=== PATIENT | female | born 1945 | race Caucasian/White ===

== ENCOUNTER → 2017-08-30 | Outpatient (CLI) | payer BC ==
--- NOTE | 2017-09-02 08:13 | MAMMOGRAPHY REPORT ---
BILATERAL DIGITAL SCREENING MAMMOGRAM TOMOSYNTHESIS WITH CAD: 08/30/2017 CLINICAL HISTORY: Routine screening. Patient has no complaints. TECHNIQUE: Breast tomosynthesis in addition to standard 2D mammography was performed. Current study was also evaluated with a Computer Aided Detection (CAD) system. COMPARISON: Comparison is made to exams dated: 07/01/2016 mammogram, 02/04/2014 mammogram, 02/01/2013 m ammogram, 02/01/2012 mammogram, 01/27/2011 mammogram, and 01/19/2010 mammogram - [facility] enter. BREAST COMPOSITION: There are scattered areas of fibroglandular density in both breasts. FINDINGS: No suspicious masses, calcifications, or areas of architectural distortion are noted in ei ther breast. There has been no significant interval change compared to prior exams. Scattered bilater al benign-appearing calcifications are not significantly changed. IMPRESSION: ACR BI-RADS CATEGORY 2: BENIGN There is no mammographic evidence of malignancy. A 1 year screening mammogram is recommended. The pa tient will receive written notification of the results. Approximately 10% of breast cancers are not detected with mammography. A negative mammographic report should not delay biopsy if a clinically suggestive mass is present. Tiny Smith M.D. /:08/30/2017 15:23:15 Research Attorney: Ana Castaneda M, [facility] letter sent: Normal 1/2 BI-RADS Code: ACR BI-RADS Category 2: Benign
== END | disposition home or self-care (01) ==
LOC: C.MAMM 13:35
PROVIDERS: ATTEND Family Medicine
DX: Z12.31 Encounter for screening mammogram for malignant neoplasm of breast (principal)

== ENCOUNTER → 2018-01-04 | Outpatient (CLI) | payer BC ==
--- NOTE | 2018-01-04 13:39 | DIAGNOSTIC IMAGING REPORT ---
ABDOMEN FOR HERNIA CLINICAL HISTORY: 72 years-old Female presenting with ABD LUMP,POSSIBLE HERNIA. TECHNIQUE: Real-time grayscale Doppler ultrasound imaging of the left abdomen/hypochondrium was performed for a focused evaluation at the site of clinical concern. Color Doppler ultrasound imaging was also performed. COMPARISON: None. FINDINGS: At the site of a palpable abnormality, is suspected peritoneal defect is evident with herniated intra-abdominal fat. No associated fluid. No hyperemia. This is incompletely reducible with the ultrasound probe. IMPRESSION: 1. Nonreducible fat-containing ventral hernia at the site of clinical concern. Electronically signed by: Jules Scott M.D. 01/04/2018 1:37 PM Dictated Date/Time: 01/04/2018 1:35 PM
== END | disposition home or self-care (01) ==
LOC: C.ULTR 13:02
PROVIDERS: ATTEND Nurse Practitioner Family
DX: R19.00 Intra-abdominal and pelvic swelling, mass and lump, unspecified site (principal)

== ENCOUNTER 2018-02-20 08:54 | Emergency (ER) | payer BC ==
[2018-02-20 09:02] VITALS: TEMP 37
[2018-02-20] MEDS ORDERED: ATEN-173 PO (09:15)
[2018-02-20] MEDS ORDERED: PRLSR20 PO (09:15)
[2018-02-20] MEDS ORDERED: FAMOTIDINE 20MG/5ML IV PUSH IV STA (09:37)
[2018-02-20] MEDS ORDERED: METHYLPREDNISOLONE 125 MG VIAL IV STA (09:37)
[2018-02-20] MEDS ORDERED: DiphenhydrAMINE HCL 50 MG/ML VIAL IV STA (09:37)
[2018-02-20] MEDS ORDERED: PRED20TA PO (10:57)
[2018-02-20] MEDS ORDERED: EPP3/2 IM (10:57)
--- NOTE | 2018-02-20 11:01 | EMERGENCY ROOM VISIT NOTE ---
History Report prepared by Sabihaibalondra: Issa Yuen Under the Supervision of: Dr. Isidra Rice M.D. First contact with patient: 09:33 Chief Complaint: ALLERGIC REACTION Stated Complaint: ALLERGIC REACTION History of Present Illness The patient is a 72 year old female who presents to the Emergency Room with complaints of a constant generalized allergic reaction beginning last night. She states that her symptoms began after returning home from work at [employer]. She states that her symptoms began with noticing a "lump" on her right nostril. She states that the area felt "hard", and this eventually progressed into her upper lip. The patient states that she then developed generalized itching, worse on her head. She later noticed swelling to her feet and breasts. She denies shortness of breath. The patient denies eating anything abnormal. She denies any exposures to new chemicals. She is unsure what could have caused her symptoms. Source of History: patient Onset: Last night Position: other (generalized) Quality: other (allergic reaction) Timing: constant Associated Symptoms: No SOB Review of Systems See HPI for pertinent positives & negatives. A total of 10 systems reviewed and were otherwise negative. Past Medical & Surgical Medical Problems: (1) GERD (gastroesophageal reflux disease) (2) Hernia (3) HTN (hypertension) Surgical Problems: (1) H/O: hysterectomy Family History No pertinent family history stated. Social History Smoking Status: Never Smoker Marital Status: Housing Status: lives alone Occupation Status: employed Current/Historical Medications Scheduled Atenolol (Tenormin), 25 MG PO DAILY Omeprazole (Prilosec), 20 MG PO DAILY Prednisone (Prednisone), 20 MG PO DAILY Scheduled PRN Epinephrine (Epipen 2-Tom), 1 AMP IM as needed PRN for Allergic Reaction Allergies Coded Allergies: No Known Allergies (Unverified , 02/20/18) Physical Exam Vital Signs Date Time Temp Pulse Resp B/P (MAP) Pulse Ox O2 Delivery O2 Flow Rate FiO2 02/20/18 11:02 88 17 143/87 97 02/20/18 10:53 88 17 143/87 97 Room Air 02/20/18 09:15 Room Air 02/20/18 09:02 37.0 94 20 108/67 96 Room Air Physical Exam Vital signs reviewed. General: Well-appearing female, in no significant distress. HEENT: No scleral icterus, PERRLA, neck supple. Atraumatic. Mild uvular edema. Cardiovascular: Regular rate and rhythm, no extra sounds. Pulmonary: Clear to auscultation bilaterally, normal work of breathing. Abdomen: Soft, nontender, nondistended, positive bowel sounds. Musculoskeletal: Atraumatic, no peripheral edema. Neurologic: Patient awake alert and oriented x 3 Skin: Warm, dry, no rash. Scattered urticaria to the upper extremities, anterior chest and abdomen. Medical Decision & Procedures Medications Administered Medications (Trade) Dose Ordered Sig/Carlos Route Start Time Stop Time Status Last Admin Dose Admin Diphenhydramine HCl (Benadryl Inj) 25 mg NOW STAT IV 02/20/18 09:37 02/20/18 09:40 DC 02/20/18 10:37 25 MG Methylprednisolone Sodium Succinate (Solu-Medrol IV) 125 mg NOW STAT IV 02/20/18 09:37 02/20/18 09:40 DC 02/20/18 10:37 125 MG Famotidine (Pepcid 20mg Iv Push) 20 mg ONE STAT IV 02/20/18 09:37 02/20/18 09:40 DC 02/20/18 10:37 20 MG ED Course 0936: Past medical records reviewed. The patient was evaluated in room B3B. A complete history and physical examination was performed. 0937: Ordered Pepcid 20 mg IV, Solu-Medrol 125 mg IV, Benadryl Inj 25 mg IV. 1055: Upon reevaluation, the patient appeared to have improvement of her symptoms. I discussed findings with her. She verbalized agreement of the treatment plan. The patient was discharged home. Medical Decision Differential diagnosis: Etiologies such as allergic reaction, anaphylaxis, urticaria, Elena-Jay syndrome, toxic epidermal necrolysis, erythema multiforme, cellulitis, as well as others were entertained. This patient was evaluated and appeared to be in no significant distress. IV access was obtained. The patient was placed on the compliance monitor. She was medicated with IV Benadryl, IV Pepcid and IV Solu-Medrol. Patient was observed in the emergency department for the better part of 2 hours total without any exacerbation of symptoms. She was discharged with a prednisone taper, asked to use Benadryl as needed and given a prescription for an EpiPen. She was advised to return to the emergency department if she uses the EpiPen. Patient will follow up with her PCP for reevaluation this week and return to the ER for worsening of symptoms or any medical concerns. Medication Reconcilliation Current Medication List: was personally reviewed by me Blood Pressure Screening Patient's blood pressure: Normal blood pressure Blood pressure disposition: Did not require urgent referral Impression Primary Impression: Allergic reaction Scribe Attestation The scribe's documentation has been prepared under my direction and personally reviewed by me in its entirety. I confirm that the note above accurately reflects all work, treatment, procedures, and medical decision making performed by me. Departure Information Dispostion Home / Self-Care Prescriptions Epinephrine (EPIPEN 2-TOM) 0.3 Mg Inj 1 AMP IM as needed Y for Allergic Reaction, #1 BOX Prov: Isidra Rice M.D. 02/20/18 Prednisone (Prednisone) 20 Mg Tab 20 MG PO DAILY, #4 TAB Prov: Isidra Rice M.D. 02/20/18 Referrals Chris Bazzi M.D. (PCP) Forms HOME CARE DOCUMENTATION FORM, IMPORTANT VISIT INFORMATION Patient Instructions ED Allergic Reaction General Other, My [facility] Additional Instructions Diagnosis: Allergic reaction Prednisone 20 mg daily for the next 4 days. Benadryl 25-50 mg every 6 hours as needed for rash, itching or swelling. When the Benadryl is done, consider a daily Greta which is [id number]. EpiPen as directed by the pharmacist for severe allergic symptoms. Return to the emergency department if you take this medication. Follow-up with your primary care physician this week for reevaluation. Return to the ER for worsening of symptoms or any medical concerns.
[2018-02-20 11:02] VITALS: BP 143/87; PULSE 88; O2SAT 97
== END 2018-02-20 11:03 | disposition home or self-care (01) ==
LOC: C.EDB 08:56
DX: T78.40XA Allergy, unspecified, initial encounter (principal); X58.XXXA Exposure to other specified factors, initial encounter; K21.9 Gastro-esophageal reflux disease without esophagitis; I10 Essential (primary) hypertension; Z90.710 Acquired absence of both cervix and uterus; Z79.899 Other long term (current) drug therapy

== ENCOUNTER 2022-03-21 10:59 | Inpatient (IN) ==
[2022-03-21] MEDS ORDERED: PANTOprazole 40 MG in SYRINGE 0 ML IV ONE (11:42)
[2022-03-21] MEDS: SODIUM CHLORIDE 0.9% 1000ML 1,000 ML IV SCH ×3 (11:55→21:54)
--- NOTE | 2022-03-21 12:00 | Emergency Department Note ---
History of Present Illness General Chief complaint: Dizziness Stated complaint: DIZZY,SWEATING,STOMACH PAIN,DARK STOOLS,TIRED Time Seen by Provider: 03/21/22 11:28 Source: patient Mode of arrival: ambulatory Limitations: no limitations History of Present Illness Provider complaint: dizziness, fatigue, black stools Onset (ago): week(s) 1 Maximum Pain Intensity: 3 Exacerbated By: + movement Associated symptoms: + malaise and + shortness of breath; no chest pain or no fever/chills Treatments prior to arrival: none This is a 77-year-old female who presents emergency department with concern for intermittent episodes of dizziness, diaphoresis, and fatigue, as well as black stools over the course of the week. Patient states last weekend she did have a constitution party at her house and drank more than usual and has been eating leftover food all week. She states she did notice some increased fatigue with exertion as well as some slight increased "windedness". Patient states yesterday this seemed worse while she was at work and she was so tired after work she came home and went straight to bed and slept till 9:00 this morning. Patient states she did feel slightly better this morning although was still fatigued and would break out in a sweat. She denies any overt chest pain or pressure although states she has felt like her heart was racing and pounding. She states she does feel slightly more short of breath than usual with exertion, no sense of shortness of breath at rest. Patient states she does have a prior history of GERD and peptic ulcer disease. Patient states she does not take a daily stomach medication. Patient states she does take Aleve every night for her joint pains. Patient states occasionally she will use aspirin or Tylenol in addition. She denies any blood thinners. She states she has had some intermittent crampy abdominal pain. She has not seen any gross blood with bowel movements but states it did look very black. Pt seen during a time of high acuity and national emergency pandemic while wearing PPE. Home Medications Medication Instructions Recorded Confirmed Type pantoprazole 40 mg tablet,delayed 40 mg PO BID #60 tab 03/23/22 Rx release Allergies Allergy/AdvReac Type Severity Reaction Status Date / Time No Known Allergies Allergy Verified 03/22/22 15:09 Past Med/Surg History Medical History GERD (gastroesophageal reflux disease) HTN (hypertension) UGIB (upper gastrointestinal bleed) Surgical History H/O: hysterectomy Social History (Updated 03/21/22 @ 15:48 by Dominga Juarez PA-C) Smoking Status: Never smoker Hx Alcohol Use: Yes Alcohol type: beer Alcohol Intake Frequency: 4 or More x per/Week Hx Substance Use: No Preferred Language: Slovenian Communication Ability: Effective Insulation Hoseman Required: No Beliefs That Will Affect Care: None Current Living Situation: Alone Current Living Situation Comment: House Feels Safe at Home: Yes Assistive Devices: None Review of Systems A total of 10 systems reviewed and were otherwise negative All systems reviewed & are unremarkable except as noted in HPI & below Physical Exam Vital Signs Vital Signs - 24 hr 03/21/22 11:03 03/21/22 12:39 Temperature 36.1 C L Temperature Source Temporal Artery Scan Pulse Rate 134 H Pulse Rate [Apical] 92 H Respiratory Rate 20 16 Blood Pressure 150/126 H Blood Pressure [Left Arm] 111/69 Blood Pressure Mean 134 Blood Pressure Mean [Left Arm] 83 Pulse Oximetry 98 100 Oxygen Delivery Method Room Air Room Air Sepsis Recent Fever Within 48 Hours No Sepsis New/Unexplained Change in Mental Status No Sepsis Action Taken by Nursing No Action Required GENERAL: alert, well appearing, well nourished, no distress, non-toxic EYE EXAM: normal conjunctiva, PERRL and EOM's grossly intact OROPHARYNX: no exudate, no erythema, lips, buccal mucosa, and tongue normal and mucous membranes are moist NECK: supple, no nuchal rigidity, no adenopathy, non-tender LUNGS: Clear to auscultation. Normal chest wall mechanics, no w/r/r HEART: no murmurs, S1 normal and S2 normal, tachycardic on telemetry ABDOMEN: abdomen soft, non-tender, normo-active bowel sounds, no masses, no rebound or guarding. RECTAL: No obvious anal fissure or external hemorrhoids. Small amount of stool noted in the rectal vault on TEO, melanotic in appearance, heme positive on bedside guaiac testing. BACK: Back is symmetrical on inspection and there is no deformity, no midline tenderness, no CVA tenderness. SKIN: no rashes and no bruising UPPER EXTREMITIES: upper extremities are grossly normal. FROM, nml pulses b/l. LOWER EXTREMITIES: No pitting edema. FROM, nml pulses b/l. NEURO EXAM: Normal sensorium, cranial nerves II-XII grossly intact, normal speech, no gross weakness of arms, no gross weakness of legs. Gross sensation intact. Course Course 1250: Pt updated on results. Denies ever being told she had anemia. 1425: Pt updated. Still tachycardic at bedside. Administered Medications Discontinued Medications Acetaminophen (Acetaminophen 325 Mg Tab) 650 mg PO NOW ONE Stop: 03/21/22 21:32 Last Admin: 03/21/22 21:52 Dose: 650 mg Documented by: [id number] Acetaminophen (Acetaminophen 1000 Mg/100 Ml Iv) 1,000 mg IV Q8H PRN PRN Reason: Pain or Fever Stop: 03/24/22 21:30 Last Admin: 03/22/22 20:36 Dose: 1,000 mg Documented by: [id number] Pantoprazole Sodium 40 mg/ (Syringe) 10 mls @ 5 mls/min IV NOW ONE Stop: 03/21/22 11:43 Last Admin: 03/21/22 13:15 Dose: 5 mls/min Documented by: [id number] Sodium Chloride (Nss 1000ml) 1,000 mls @ 200 mls/hr IV .Q5H [facility] Stop: 04/20/22 11:44 Last Admin: 03/22/22 11:38 Dose: Not Given Documented by: [id number] Admin: 03/22/22 04:06 Dose: Not Given Documented by: [id number] Admin: 03/21/22 21:54 Dose: Not Given Documented by: [id number] Admin: 03/21/22 19:28 Dose: Not Given Documented by: [id number] Infusion: 03/21/22 17:21 Dose: 0 mls/hr Documented by: [id number] Admin: 03/21/22 11:55 Dose: 200 mls/hr Documented by: [id number] Pantoprazole Sodium 40 mg/ (Dextrose) 100 mls @ 20 mls/hr IV Q5H [facility] Stop: 04/20/22 14:29 Last Infusion: 03/21/22 19:26 Dose: 0 mg/hr, 0 mls/hr Documented by: [id number] Admin: 03/21/22 14:37 Dose: 8 mg/hr, 20 mls/hr Documented by: [id number] Lactated Ringer's (Lr) 1,000 mls @ 80 mls/hr IV .[id number] [facility] Stop: 04/20/22 17:47 Last Infusion: 03/22/22 13:21 Dose: 0 mls/hr Documented by: [id number] Infusion: 03/22/22 13:21 Dose: 0 mls/hr Documented by: [id number] Admin: 03/22/22 07:36 Dose: 80 mls/hr Documented by: [id number] Infusion: 03/22/22 07:33 Dose: 0 mls/hr Documented by: [id number] Admin: 03/21/22 18:27 Dose: 80 mls/hr Documented by: [id number] Pantoprazole Sodium 40 mg/ (Syringe) 10 mls @ 5 mls/min IV BID [facility] Stop: 04/20/22 20:59 Last Admin: 03/23/22 08:06 Dose: 5 mls/min Documented by: [id number] Admin: 03/22/22 20:24 Dose: 5 mls/min Documented by: [id number] Admin: 03/22/22 10:02 Dose: 5 mls/min Documented by: [id number] Admin: 03/21/22 21:50 Dose: 5 mls/min Documented by: [id number] Ioversol (Optiray 320 100ml) 94 ml IV ONCE ONE Stop: 03/21/22 13:05 Last Admin: 03/21/22 13:05 Dose: 94 ml Documented by: [id number] Lidocaine HCl (Lidocaine 2% 2 Ml Vial/Amp(20mg/Ml)) Confirm Administered Dose 2 ml INFIL .STK-MED ONE Stop: 03/22/22 16:04 Last Admin: 03/22/22 18:33 Dose: Not Given Documented by: [id number] Melatonin (Melatonin 3 Mg Tab) 3 mg PO HS PRN PRN Reason: Sleep Stop: 04/20/22 22:01 Last Admin: 03/21/22 22:16 Dose: 3 mg Documented by: [id number] Melatonin (Melatonin 3 Mg Tab) 6 mg PO HS PRN PRN Reason: Sleep Stop: 04/20/22 22:01 Last Admin: 03/22/22 20:23 Dose: 6 mg Documented by: [id number] Melatonin (Melatonin 3 Mg Tab) 3 mg PO NOW ONE Stop: 03/22/22 05:05 Last Admin: 03/22/22 07:34 Dose: Not Given Documented by: [id number] Propofol (Propofol Iv Emulsion 10 Mg/Ml 20 Ml Vial) Confirm Administered Dose 200 mg IV .STK-MED ONE Stop: 03/22/22 16:04 Last Admin: 03/22/22 18:34 Dose: Not Given Documented by: [id number] Propofol (Propofol Iv Emulsion 10 Mg/Ml 20 Ml Vial) Confirm Administered Dose 200 mg IV .STK-MED ONE Stop: 03/22/22 16:27 Last Admin: 03/22/22 18:34 Dose: Not Given Documented by: [id number] Critical Care Time Critical Care Time: Yes Total Critical Care Time: 41 Critical care of 41 min performed to assess and manage high likelihood of life- threatening GI bleed, involving labs and imaging performed with assessment to evaluate GI bleed diagnosis with frequent reassessment. This time includes bedside time, treatment discussions with patient/family/consultants, documentation time and excludes procedure time. Medical Decision Making Differential Diagnosis Differential diagnosis includes etiologies such as diverticulosis, AVM, c oagulopathy, colitis, inflammatory bowel disease, malignancy, Ángela-Lowe tear, esophagitis, peptic ulcer disease, variceal bleed, gastritis, epistaxis, fissure, hemorrhoids, as well as others were entertained. Medical Records Attestation: I reviewed the patient's medical records. Home Medications Current Medication List: was personally reviewed by me Laboratory Data Attestation: I reviewed the patient's lab results. Result diagrams: 03/23/22 05:40 03/23/22 05:40 Lab Results 03/21/22 03/21/22 03/21/22 Range/Units 11:53 11:53 11:53 WBC 8.61 (4.8-10.8) K/uL RBC 3.15 L (4.2-5.4) M/uL Hgb 9.1 L (12.0-16.0) g/dL Hct 27.4 L (37-47) % MCV 87.0 (80-100) fL MCH 28.9 (25-34) pg MCHC 33.2 (32-36) g/dL RDW Std Deviation 44.1 (36.4-46.3) fL RDW Coeff of Clara 13.8 (11.5-14.5) % Plt Count 257 (130-400) K/uL MPV 10.3 (7.4-10.4) fL Immature Gran % (Auto) 0.2 % Neut % (Auto) 75.3 % Lymph % (Auto) 17.8 % Morris % (Auto) 6.2 % Eos % (Auto) 0.2 % Baso % (Auto) 0.3 % Neut # (Auto) 6.48 (1.4-6.5) K/uL Lymph # (Auto) 1.53 (1.2-3.4) K/uL Morris # (Auto) 0.53 (0.11-0.59) K/uL Eos # (Auto) 0.02 (0-0.5) K/uL Baso # (Auto) 0.03 (0-0.2) K/uL Immature Gran # (Auto) 0.02 (0.00-0.02) K/uL PT 10.3 (9.0-12.0) Seconds INR 1.0 (0.9-1.1) Sodium (136-145) mmol/L Potassium (3.5-5.1) mmol/L Chloride (98-107) mmol/L Carbon Dioxide (21-32) mmol/L Anion Gap (3-11) BUN (6-23) mg/dl Creatinine (0.6-1.2) mg/dl Est Cr Clr Drug Dosing ml/min Est GFR ( Amer) ml/min Est GFR (Non-Af Amer) ml/min BUN/Creatinine Ratio (10-20) Glucose (70-99(Fasting)) mg/dl Calcium (8.5-10.1) mg/dl Magnesium (1.7-2.4) mg/dl Total Bilirubin (0.2-1.0) mg/dl AST (13-39) U/L ALT (7-52) U/L Alkaline Phosphatase (34-104) U/L Troponin I High Sens (0-14) pg/ml Total Protein (6.0-8.3) gm/dl Albumin (3.4-5.0) gm/dl Globulin (2.5-4.0) gm/dl Albumin/Globulin Ratio (0.9-2) Lipase (11-82) U/L Urine Color Urine Appearance (Clear) Urine pH (4.5-7.5) Ur Specific [place] (1.000-1.030) Urine Protein (Negative) Urine Glucose (UA) (Negative) Urine Ketones (Negative) Urine Blood (Negative) Urine Nitrite (Negative) Urine Bilirubin (Negative) Urine Urobilinogen (Negative) Ur Leukocyte Esterase (Negative) Urine WBC (Auto) (0-5) /hpf Urine RBC (Auto) (0-4) /hpf U Hyaline Cast (Auto) (0-5) /lpf U Epithel Cells (Auto) (0-5) /lpf Urine Bacteria (Auto) (Negative) Blood Type O Positive Antibody Screen NEGATIVE Crossmatch See Detail 03/21/22 03/21/22 Range/Units 11:53 14:42 WBC (4.8-10.8) K/uL RBC (4.2-5.4) M/uL Hgb (12.0-16.0) g/dL Hct (37-47) % MCV (80-100) fL MCH (25-34) pg MCHC (32-36) g/dL RDW Std Deviation (36.4-46.3) fL RDW Coeff of Clara (11.5-14.5) % Plt Count (130-400) K/uL MPV (7.4-10.4) fL Immature Gran % (Auto) % Neut % (Auto) % Lymph % (Auto) % Morris % (Auto) % Eos % (Auto) % Baso % (Auto) % Neut # (Auto) (1.4-6.5) K/uL Lymph # (Auto) (1.2-3.4) K/uL Morris # (Auto) (0.11-0.59) K/uL Eos # (Auto) (0-0.5) K/uL Baso # (Auto) (0-0.2) K/uL Immature Gran # (Auto) (0.00-0.02) K/uL PT (9.0-12.0) Seconds INR (0.9-1.1) Sodium 138 (136-145) mmol/L Potassium 3.7 (3.5-5.1) mmol/L Chloride 108 H (98-107) mmol/L Carbon Dioxide 25 (21-32) mmol/L Anion Gap 5 (3-11) BUN 40 H (6-23) mg/dl Creatinine 0.66 (0.6-1.2) mg/dl Est Cr Clr Drug Dosing 64.0 ml/min Est GFR ( Amer) 100.2 ml/min Est GFR (Non-Af Amer) 86.4 ml/min BUN/Creatinine Ratio 60.6 H (10-20) Glucose 116 H (70-99(Fasting)) mg/dl Calcium 8.9 (8.5-10.1) mg/dl Magnesium 2.1 (1.7-2.4) mg/dl Total Bilirubin 0.5 (0.2-1.0) mg/dl AST 13 (13-39) U/L ALT 8 (7-52) U/L Alkaline Phosphatase 50 (34-104) U/L Troponin I High Sens 3.8 (0-14) pg/ml Total Protein 6.2 (6.0-8.3) gm/dl Albumin 4.1 (3.4-5.0) gm/dl Globulin 2.1 L (2.5-4.0) gm/dl Albumin/Globulin Ratio 2.0 (0.9-2) Lipase 25 (11-82) U/L Urine Color Yellow Urine Appearance Clear (Clear) Urine pH 5.5 (4.5-7.5) Ur Specific [place] 1.037 H (1.000-1.030) Urine Protein Negative (Negative) Urine Glucose (UA) Negative (Negative) Urine Ketones Negative (Negative) Urine Blood Negative (Negative) Urine Nitrite Negative (Negative) Urine Bilirubin Negative (Negative) Urine Urobilinogen Negative (Negative) Ur Leukocyte Esterase 2+ H (Negative) Urine WBC (Auto) 5-10 H (0-5) /hpf Urine RBC (Auto) 0-4 (0-4) /hpf U Hyaline Cast (Auto) 1-5 (0-5) /lpf U Epithel Cells (Auto) >30 H (0-5) /lpf Urine Bacteria (Auto) Negative (Negative) Blood Type Antibody Screen Crossmatch Imaging Data Radiologist's Impression: Abdomen/Pelvis CT 03/21/22 11:42 CT abd pelvis IV con only CLINICAL HISTORY: abd pain, GI bleed COMPARISON STUDY: No previous studies for comparison. CT DOSE: 306.19 mGy.cm TECHNIQUE: Standard CT of the Abdomen and Pelvis was performed with IV contrast. A dose lowering technique was utilized adhering to the principles of ALARA. Contrast Volume: Optiray 320, 94 ml. The patient did not receive oral contrast. FINDINGS: Lung base: The lung bases are clear. Abdominal cavity: There is no evidence for abdominal mass, adenopathy or ascites. Liver: There is homogeneous attenuation of the liver parenchyma. There is no evidence for enhancing mass lesion. Spleen: There is homogeneous attenuation of the splenic parenchyma. There is no enhancing mass lesion. Pancreas: There is homogeneous attenuation of the pancreatic parenchyma. There is no evidence for mass lesion or peripancreatic fluid collection. Gall Bladder: The patient is status post cholecystectomy with physiologic dilatation of common bile duct. Adrenal glands: The adrenal glands are normal in size and attenuation. There is no evidence for enhancing mass lesion. Kidneys: There is homogeneous attenuation of the renal parenchyma bilaterally. There is no evidence for renal calculus or hydronephrosis. There is no evidence for enhancing mass. There is a sharply defined simple right renal cyst. Bowel: There is no CT evidence for active GI bleeding. The bowel loops are n ormally placed within the abdomen and pelvis without evidence for dilatation or obstruction. There is no evidence for mass lesion. There are no inflammatory changes present. There is no evidence for free air. The appendix is not visualized. Bladder: The bladder is within normal limits with no evidence for focal mass, calculus or diverticulum. : There is no evidence for pelvic mass or adenopathy. There is no evidence for pelvic ascites. Vasculature: There is no evidence for aneurysmal dilatation of the abdominal aor ta. Osseous structures: There is no acute osseous pathology. Degenerative changes are seen within the spine. IMPRESSION: 1. No acute intra-abdominal or pelvic abnormality. 2. No CT evidence for GI bleed. 3. Additional nonacute findings are delineated above. ACT 112: Negative or not required by law. Electronically signed by: Jorge Dykes M.D. 03/21/2022 1:38 PM Chest X-Ray 03/21/22 11:42 XR chest 1V portable CLINICAL HISTORY: sob. COMPARISON STUDY: No previous studies for comparison. TECHNIQUE: 1 view of the chest FINDINGS: Single frontal view of the chest demonstrates the cardiomediastinal silhouette to be within normal limits. The lungs are clear of alveolar opacities. There is no evidence for pleural effusion. There is no evidence for vascular congestion. There is no acute osseous pathology. IMPRESSION: 1. No acute cardiopulmonary disease. ACT 112: Negative or not required by law. Electronically signed by: Jorge Dykes M.D. 03/21/2022 12:27 PM MDM Narrative An order was placed for continuous cardiac monitoring. The monitor shows a rate of _106_ with __normal sinus__ rhythm. This is a 77 yo female who presents with complaints of worsening fatigue, dizziness, WHITE and melenotic stools over the course of the last week. VS stable, however pt was tachycardic. Denied symptoms at rest. Exam at bedside did confirm melena and heme positive stools. Hbg 9, no prior for comparison. Patient denies prior hx of anemia. Patient does use ASA and NSAIDS daily for arthritis pain and admits to nearly [place] alcohol use. CT reassuring. Discussed need for treatment and EGD. Case discussed with hospitalist. Impression & Plan Dizziness, GERD (gastroesophageal reflux disease), UGIB (upper gastrointestinal bleed), Alcohol use, Fatigue Discharge Plan Visit Data Chief Complaint: Dizziness Stated Complaint: DIZZY,SWEATING,STOMACH PAIN,DARK STOOLS,TIRED ED Provider: Tawny Boggs Discharge Problem: Dizziness, GERD (gastroesophageal reflux disease), UGIB (upper gastrointestinal bleed), Alcohol use, Fatigue Patient Disposition: Admitted As Inpatient Discharge Instructions Interventions: ED Discharge Assessment Last Done: 03/21/22 17:50 Discharge Problem: GERD (gastroesophageal reflux disease) Qualifiers: Esophagitis presence: esophagitis presence not specified Qualified Code(s): K21.9 - Gastro-esophageal reflux disease without esophagitis Fatigue Qualifiers: Fatigue type: unspecified Qualified Code(s): R53.83 - Other fatigue
[2022-03-21 12:07] LABS: Basophils # (auto) 0.03 K/uL (0-0.2); Basophils % (auto) 0.3 %; Eosinophils # (auto) 0.02 K/uL (0-0.5); Eosinophils % (auto) 0.2 %; Hematocrit (blood only) 27.4 % (37-47); Hemoglobin 9.1 g/dL (12.0-16.0); Immature Granulocytes # (auto) 0.02 K/uL (0.00-0.02); Immature Granulocytes % (auto) 0.2 %; Lymphocytes # (auto) 1.53 K/uL (1.2-3.4); Lymphocytes % (auto) 17.8 %; Mean Corpuscular Hemoglobin 28.9 pg (25-34); Mean Corpuscular Hgb Conc 33.2 g/dL (32-36); Mean Platelet Volume 10.3 fL (7.4-10.4); Monocytes # (auto) 0.53 K/uL (0.11-0.59); Monocytes % (auto) 6.2 %; Neutrophils # (auto) 6.48 K/uL (1.4-6.5); Neutrophils % (auto) 75.3 %; Platelet Count 257 K/uL (130-400); RDW Coefficient of Variation 13.8 % (11.5-14.5); RDW Standard Deviation 44.1 fL (36.4-46.3); Red Blood Count 3.15 M/uL (4.2-5.4); White Blood Count 8.61 K/uL (4.8-10.8)
[2022-03-21 12:21] LABS: Prothrombin Time 10.3 Seconds (9.0-12.0)
--- NOTE | 2022-03-21 12:28 | XRay Report ---
XR chest 1V portable CLINICAL HISTORY: sob. COMPARISON STUDY: No previous studies for comparison. TECHNIQUE: 1 view of the chest FINDINGS: Single frontal view of the chest demonstrates the cardiomediastinal silhouette to be within normal li mits. The lungs are clear of alveolar opacities. There is no evidence for pleural effusion. There is no evidence for vascular congestion. There is no acute osseous pathology. IMPRESSION: 1. No acute cardiopulmonary disease. ACT 112: Negative or not required by law. Electronically signed by: Jorge Dykes M.D. 03/21/2022 12:27 PM
[2022-03-21 12:29] LABS: Albumin Level 4.1 gm/dl (3.4-5.0); BUN Creatinine Ratio 60.6 (10-20); Bilirubin,Total 0.5 mg/dl (0.2-1.0); Calcium 8.9 mg/dl (8.5-10.1); Est GFR (African American) 100.2 ml/min; Est GFR (Non-African American) 86.4 ml/min; Globulin 2.1 gm/dl (2.5-4.0); Magnesium 2.1 mg/dl (1.7-2.4); Potassium 3.7 mmol/L (3.5-5.1); Total Protein 6.2 gm/dl (6.0-8.3)
[2022-03-21 12:31] LABS: Troponin I High Sensitivity 3.8 pg/ml (0-14)
[2022-03-21] MEDS ORDERED: OPTIRAY 320 100ml IV ONE (13:04)
--- NOTE | 2022-03-21 13:40 | CT Scan Report ---
CT abd pelvis IV con only CLINICAL HISTORY: abd pain, GI bleed COMPARISON STUDY: No previous studies for comparison. CT DOSE: 306.19 mGy.cm TECHNIQUE: Standard CT of the Abdomen and Pelvis was performed with IV contrast. A dose lowering elisabeth hnique was utilized adhering to the principles of ALARA. Contrast Volume: Optiray 320, 94 ml. The patient did not receive oral contrast. FINDINGS: Lung base: The lung bases are clear. Abdominal cavity: There is no evidence for abdominal mass, adenopathy or ascites. Liver: There is homogeneous attenuation of the liver parenchyma. There is no evidence for enhancing m ass lesion. Spleen: There is homogeneous attenuation of the splenic parenchyma. There is no enhancing mass lesion . Pancreas: There is homogeneous attenuation of the pancreatic parenchyma. There is no evidence for mas s lesion or peripancreatic fluid collection. Gall Bladder: The patient is status post cholecystectomy with physiologic dilatation of common bile d uct. Adrenal glands: The adrenal glands are normal in size and attenuation. There is no evidence for enhan cing mass lesion. Kidneys: There is homogeneous attenuation of the renal parenchyma bilaterally. There is no evidence f or renal calculus or hydronephrosis. There is no evidence for enhancing mass. There is a sharply defi tiara simple right renal cyst. Bowel: There is no CT evidence for active GI bleeding. The bowel loops are normally placed within the abdomen and pelvis without evidence for dilatation or obstruction. There is no evidence for mass les ion. There are no inflammatory changes present. There is no evidence for free air. The appendix is no t visualized. Bladder: The bladder is within normal limits with no evidence for focal mass, calculus or diverticulu m. : There is no evidence for pelvic mass or adenopathy. There is no evidence for pelvic ascites. Vasculature: There is no evidence for aneurysmal dilatation of the abdominal aorta. Osseous structures: There is no acute osseous pathology. Degenerative changes are seen within the spi ne. IMPRESSION: 1. No acute intra-abdominal or pelvic abnormality. 2. No CT evidence for GI bleed. 3. Additional nonacute findings are delineated above. ACT 112: Negative or not required by law. Electronically signed by: Jorge Dykes M.D. 03/21/2022 1:38 PM
[2022-03-21] MEDS ORDERED: PANTOprazole 40 MG in DEXTROSE 5% 100 ML IV SCH (14:30)
--- NOTE | 2022-03-21 14:44 | History & Physical Report ---
Date of Service March 21, 2022 Assessment & Plan (1) UGIB (upper gastrointestinal bleed): Plan: - Suspected, given elevated BUN, hemoglobin 9.1, dark tarry stools over the past week with multiple risk factors including frequent coffee ingestion, frequent NSAID ingestion. With a distant history of PUD 15-20 years ago. - Continue IV PPI twice daily. - Clear liquids for now, n.p.o. at midnight. - Consult GI, appreciate their recommendations. - Trend H/H every 8 hours. - Counseled on need to find alternative for pain relief, as frequent NSAID use is likely contributing to GI bleed. Also encouraged to reduce caffeine intake. (2) GERD (gastroesophageal reflux disease): Plan: - Has been intermittently taking omeprazole over the past several months. - We will likely need to be on this daily upon discharge. (3) Alcohol use: Plan: - Reports she drinks 3-6 beers/night every night. Has never withdrawn from alcohol. LFTs within normal limits. - Placed on AWSS as per precautions. - Patient was counseled on the need to cut back on alcohol in order to prevent future episodes of GI bleeds. Plan: - Admit to med/telemetry. - SCDs for DVT PPx. - Full code. History of Present Illness Chief Complaint: dark, tarry stools Primary Care Provider: Chris Bazzi MD Mariaelena Avitia is a 77 y/o female with PMH of arthritis, GERD, and distant history of PUD who presents today for evaluation of dark stools over the past week. She reports she has been noting that her stools have been black over the past week, almost as if they are tarry. She has also developed shortness of breath, dizziness, and palpitations with activity beginning yesterday. She does she drinks coffee daily and has been taking either "3 pills" of Advil or aspirin regularly for the 2-3 weeks for treatment of her arthritis. 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 She does note a distant history of peptic ulcer disease ~15-20 years ago, believes she has had this EGD before but does not recall results. She does not recall ever being told that she is anemic by her PCP, who she does see regularly. In ED, she is mildly hypertensive with HR 90, otherwise vital signs within normal limits and stable. Labs largely unremarkable, significant for hemoglobin 9.1 (no previous labs for reference), BUN 40. No leukocytosis, electrolytes within normal limits. HS Trop 3.8. CT A/P showed no CT evidence for GI bleed or any other acute abnormalities. CXR unremarkable. Patient received IV fluids as well as IV pantoprazole in ED. Hospitalist service was consulted for further evaluation and admission. Allergies Allergy/AdvReac Type Severity Reaction Status Date / Time No Known Allergies Allergy Unverified 02/20/18 09:15 Home Medications Medication Instructions Recorded Confirmed Type No Known Home Medications 03/21/22 03/21/22 History Past Med/Surg History Medical History (Updated 03/21/22 @ 15:48 by Dominga Juarez PA-C) GERD (gastroesophageal reflux disease) HTN (hypertension) UGIB (upper gastrointestinal bleed) Surgical History (Updated 03/21/22 @ 15:48 by Dominga Juarez PA-C) H/O: hysterectomy Social History (Updated 03/21/22 @ 15:48 by Dominga Juarez PA-C) Smoking Status: Never smoker Hx Alcohol Use: Yes (3-6 beers/night ) Alcohol type: beer Alcohol Intake F requency: 4 or More x per/Week Preferred Language: [place] Citizen Feels Safe at Home: Yes Review of Systems Review of Systems: Constitutional: lightheaded/dizzy since yesterday; No fever/chills, weakness, fatigue, myalgias, anorexia, night sweats Eyes: No diplopia, no worsening or blurred vision ENT: normal hearing, no trouble swallowing Respiratory: WHITE since yesterday; No cough, sputum, dyspnea at rest Cardiovascular: palpitations since yesterday; No chest pain, tightness Abdomen: LUQ pain without radiation; nausea without emesis starting yesterday; dark, tarry stools x1 week; denies bright red blood in stool : Denies dysuria, hematuria, increased urgency/frequency, urinary retention Musculoskeletal: No joint pain, calf pain, swelling Neurologic: No weakness, numbness/tingling, or balance problems Psychiatric: No anxiety or depression Skin: No rash or itch Physical Exam Physical Exam: General: awake, alert, no apparent distress Head: Normocephalic, atraumatic ENT: PERRL, EOMI, no pharyngeal exudate, mucous membranes moist Chest: Clear to auscultation, on room air, no adventitious breath sounds Cardiac: Regular rate and rhythm, no murmur, no JVD, normal peripheral pulses, good capillary refill Abdominal: NABS x 4 quadrants, soft, nontender to palpation, no rebound, guarding or tenderness Extremities: Normal inspection, no peripheral edema or erythema, calfs nontender to palpation Psych: Normal mood and affect Neuro: AAO x 3, strength intact bilaterally and rated 5/5, no motor deficits, speech is clear, no peripheral sensory deficits Skin: no rash or erythema Results & Data Results & Data ([facility]) Vital Signs (Past 12 Hours) Vital Signs Temp Pulse Pulse Resp BP BP Pulse Ox 03/21/22 12:39 92 H 16 111/69 100 03/21/22 11:03 36.1 C L 134 H 20 150/126 H 98 Laboratory Results Abnormal lab results 03/21/22 03/21/22 Range/Units 11:53 11:53 RBC 3.15 L (4.2-5.4) M/uL Hgb 9.1 L (12.0-16.0) g/dL Hct 27.4 L (37-47) % Chloride 108 H (98-107) mmol/L BUN 40 H (6-23) mg/dl BUN/Creatinine Ratio 60.6 H (10-20) Glucose 116 H (70-99(Fasting)) mg/dl Globulin 2.1 L (2.5-4.0) gm/dl Diagnostic Findings Abdomen/Pelvis CT 03/21/22 11:42 CT abd pelvis IV con only CLINICAL HISTORY: abd pain, GI bleed COMPARISON STUDY: No previous studies for comparison. CT DOSE: 306.19 mGy.cm TECHNIQUE: Standard CT of the Abdomen and Pelvis was performed with IV contrast. A dose lowering technique was utilized adhering to the principles of ALARA. Contrast Volume: Optiray 320, 94 ml. The patient did not receive oral contrast. FINDINGS: Lung base: The lung bases are clear. Abdominal cavity: There is no evidence for abdominal mass, adenopathy or ascites. Liver: There is homogeneous attenuation of the liver parenchyma. There is no evidence for enhancing mass lesion. Spleen: There is homogeneous attenuation of the splenic parenchyma. There is no enhancing mass lesion. Pancreas: There is homogeneous attenuation of the pancreatic parenchyma. There is no evidence for mass lesion or peripancreatic fluid collection. Gall Bladder: The patient is status post cholecystectomy with physiologic dilatation of common bile duct. Adrenal glands: The adrenal glands are normal in size and attenuation. There is no evidence for enhancing mass lesion. Kidneys: There is homogeneous attenuation of the renal parenchyma bilaterally. There is no evidence for renal calculus or hydronephrosis. There is no evidence for enhancing mass. There is a sharply defined simple right renal cyst. Bowel: There is no CT evidence for active GI bleeding. The bowel loops are normally placed within the abdomen and pelvis without evidence for dilatation or obstruction. There is no evidence for mass lesion. There are no inflammatory changes present. There is no evidence for free air. The appendix is not visualized. Bladder: The bladder is within normal limits with no evidence for focal mass, calculus or diverticulum. : There is no evidence for pelvic mass or adenopathy. There is no evidence for pelvic ascites. Vasculature: There is no evidence for aneurysmal dilatation of the abdominal aorta. Osseous structures: There is no acute osseous pathology. Degenerative changes are seen within the spine. IMPRESSION: 1. No acute intra-abdominal or pelvic abnormality. 2. No CT evidence for GI bleed. 3. Additional nonacute findings are delineated above. ACT 112: Negative or not required by law. Electronically signed by: Jorge Dykes M.D. 03/21/2022 1:38 PM Chest X-Ray 03/21/22 11:42 XR chest 1V portable CLINICAL HISTORY: sob. COMPARISON STUDY: No previous studies for comparison. TECHNIQUE: 1 view of the chest FINDINGS: Single frontal view of the chest demonstrates the cardiomediastinal silhouette to be within normal limits. The lungs are clear of alveolar opacities. There is no evidence for pleural effusion. There is no evidence for vascular congestion. There is no acute osseous pathology. IMPRESSION: 1. No acute cardiopulmonary disease. ACT 112: Negative or not required by law. Electronically signed by: Jorge Dykes M.D. 03/21/2022 12:27 PM ECG Additional Comments: Normal sinus rhythm Normal ECG No previous ECGs available. Code Status & VTE Plan Code Status Full code. Supervising Physician Co-Signing Physician Notes Discussed with GWEN, reviewed her documentation. Agree with note above. This is a 77-year-old female who presents today complaining of melena. Patient is an avid coffee drinker and uses NSAIDs which are likely the reasons for upper GI bleed. She was started on IV Protonix. We will keep n.p.o. for now. I will follow her H&H and transfuse as needed, last hemoglobin was 9.1. GI consulted, will likely need EGD in the next 24 hours if bleeding persist. PG Care Time/CCT Total # of Minutes Spent Total Time Spent with Patient: Total time spent is greater than 50% in coordination of care (as documented) at patient's floor/unit and/or counseling patient: Coding Level of Care Code 56933 Initial Inpt Care Lvl 2 Diagnoses UGIB (upper gastrointestinal bleed) K92.2 GERD (gastroesophageal reflux disease) K21.9 Alcohol use Z72.89
[2022-03-21 15:54] LABS: Appearance Urine Clear (Clear); Bacteria Urine Automated Negative (Negative); Bilirubin Urine Negative (Negative); Blood Urine Negative (Negative); Color Urine Yellow; Epithelial Cell Urine Auto >30 /lpf (0-5); Glucose Urine UA Negative (Negative); Ketones Urine Negative (Negative); Leukocyte Esterase Urine 2+ (Negative); Nitrite Urine Negative (Negative); Protein Urine Negative (Negative); RBC Urine Automated 0-4 /hpf (0-4); Specific Gravity Urine 1.037 (1.000-1.030); Urobilinogen Urine Negative (Negative); pH Urine 5.5 (4.5-7.5)
--- NOTE | 2022-03-21 17:38 | Electrocardiogram Report ---
Test Reason : Blood Pressure : / mmHG Vent. Rate : 093 BPM Atrial Rate : 093 BPM P-R Int : 122 ms QRS Dur : 080 ms QT Int : 354 ms P-R-T Axes : 023 061 036 degrees QTc Int : 440 ms Normal sinus rhythm Normal ECG No previous ECGs available Confirmed by Dangelo Simon ([id number]) on 03/21/2022 5:38:22 PM Referred By: REFERRED SELF Confirmed By:Pete Simon
[2022-03-21] MEDS ORDERED: LORazepam 2 MG/1 ML VIAL IV PRN (17:48)
[2022-03-21] MEDS ORDERED: ONDANSETRON INJ 2 MG/ML 2 ML VIAL IV PRN (17:48)
[2022-03-21] MEDS: LACTATED RINGER'S 1,000 ML IV SCH (18:27)
[2022-03-21 21:06] LABS: Hematocrit (blood only) 22.2 % (37-47); Hemoglobin 7.3 g/dL (12.0-16.0)
[2022-03-21] MEDS ORDERED: ACETAMINOPHEN 1000 MG/100 ML IV IV PRN (21:31)
[2022-03-21] MEDS ORDERED: ACETAMINOPHEN 325 MG TAB PO ONE (21:31)
[2022-03-21] MEDS ORDERED: SODIUM CHLORIDE 0.9% 250 ML IV PRN (21:33)
[2022-03-21] MEDS: PANTOprazole 40 MG in SYRINGE 0 ML IV SCH (21:50)
[2022-03-21] MEDS ORDERED: MELATONIN 3 MG TAB PO PRN (22:02)
[2022-03-22] MEDS: SODIUM CHLORIDE 0.9% 1000ML 1,000 ML IV SCH ×2 (04:06→11:38)
[2022-03-22 04:10] LABS: Hematocrit (blood only) 20.9 % (37-47); Mean Corpuscular Hemoglobin 29.8 pg (25-34); Mean Corpuscular Hgb Conc 33.5 g/dL (32-36); Mean Corpuscular Volume 88.9 fL (80-100); Mean Platelet Volume 10.4 fL (7.4-10.4); Platelet Count 205 K/uL (130-400); RDW Coefficient of Variation 13.8 % (11.5-14.5); RDW Standard Deviation 45.2 fL (36.4-46.3); Red Blood Count 2.35 M/uL (4.2-5.4); White Blood Count 6.46 K/uL (4.8-10.8)
[2022-03-22 04:23] LABS: Basophilic Stippling 1+; Basophils # (auto) 0.04 K/uL (0-0.2); Basophils % (auto) 0.6 %; Eosinophils # (auto) 0.11 K/uL (0-0.5); Eosinophils % (auto) 1.7 %; Immature Granulocytes # (auto) 0.01 K/uL (0.00-0.02); Immature Granulocytes % (auto) 0.2 %; Lymphocytes # (auto) 2.21 K/uL (1.2-3.4); Lymphocytes % (auto) 34.2 %; Monocytes # (auto) 0.43 K/uL (0.11-0.59); Monocytes % (auto) 6.7 %; Neutrophils # (auto) 3.66 K/uL (1.4-6.5); Neutrophils % (auto) 56.6 %; Polychromasia 1+
[2022-03-22 04:35] LABS: Albumin Level 3.2 gm/dl (3.4-5.0); BUN Creatinine Ratio 34.4 (10-20); Bilirubin,Total 0.5 mg/dl (0.2-1.0); Calcium 7.9 mg/dl (8.5-10.1); Est GFR (African American) 101.2 ml/min; Est GFR (Non-African American) 87.3 ml/min; Globulin 1.6 gm/dl (2.5-4.0); Potassium 3.8 mmol/L (3.5-5.1); Total Protein 4.8 gm/dl (6.0-8.3)
[2022-03-22] MEDS ORDERED: MELATONIN 3 MG TAB PO PRN (05:02)
[2022-03-22] MEDS ORDERED: MELATONIN 3 MG TAB PO ONE (05:04)
[2022-03-22] MEDS: LACTATED RINGER'S 1,000 ML IV SCH (07:36)
[2022-03-22] MEDS ORDERED: PANTOprazole 40 MG TAB PO SCH (09:00)
[2022-03-22] MEDS: PANTOprazole 40 MG in SYRINGE 0 ML IV SCH ×2 (10:02→20:24)
--- NOTE | 2022-03-22 12:41 | Gastrointestinal Consultation ---
Date of Consultation March 22, 2022 Assessment & Plan (1) UGIB (upper gastrointestinal bleed): Upper GI bleed: Patient reports a 1-1/2 to 2-week history of melena stools with abdominal pain that began approximately 1-1/2 weeks ago. She has risk factors for upper GI bleeding including coffee and routine NSAID use including Motrin and aspirin multiple times daily. She also drinks several beers per evening. Plan at this time is to obtain EGD today. Patient is currently n.p.o. Currently receiving blood transfusion. Would continue supportive care including IV fluids and IV Protonix. As needed transfusion as indicated. Patient is in agreement with plan of care. Procedure and risks explained to patient which include but not limited to medication reaction, bleeding, perforation, aspiration, and missed lesions. Verbalizes understanding and is agreeable to proceed. Case reviewed with Dr. Patino. Please refer to supervising physician addendum for further recommendations. I have spent 25 minutes of discrete time performing the activities of this visit which include but are not limited to review of the medical record, obtaining a history, physical exam, and entering information in the electronic record. Supervising Physician Co-Signing Physician Notes I have seen and examined the patient. I agree with note above by YESICA Buenrostro except as noted below. HPI Pt with melena and anemia. Last stool yesterday. PE Abdomen pos bs, soft, no guarding nor rebound A/P melena--c/w UGI bleed. Plan EGD today. As the supervising physician, I , Joe Patino MD have spent 15 minutes of discrete time performing the activities of this visit which include but not limited to review of the medical records, obtaining a history, physical exam and entering information in the electronic record. YESICA Buenrostro has reported spending 25Procedure and risks explained to patient which include but not limited to medication reaction, bleeding, perforation, aspiration, and missed lesions. minutes of discrete time with the activities of this visit. History of Present Illness Reason for Consultation: anemia, melena Attending Physician: David Moralez MD History of Present Illness The patient is a pleasant 77-year-old female with past medical history to include arthritis, GERD, distant history of peptic ulcer disease, GERD, history of fundoplication surgery who presented to the emergency department with complaints of melena x2-week. She was subsequently admitted due to symptoms and anemia and the GI service consulted for further support. On exam/interview today, the patient reports that she has had black stools that began approximately 1.5 to 2 weeks ago. She states that while she was at work on 03/20/2022, she began feeling clammy and warm with dizziness and an uneasy feeling in her stomach. She left work. Upperglade fatigued went to bed. She states Tuesday she felt better however melena continued. She reports her last colonoscopy was approximately 8 years ago. She states she had an EGD many many years ago. Reports a history of fundoplication surgery a long time ago performed for hiatal hernia and reflux. Patient currently denies any fever, chills, night sweats, unintentional weight loss. She does routinely use NSAIDs including aspirin and Advil. She states she uses aspirin routinely as much is 2-3 times per day. She also will use Advil 600 mg. She does drink 3 beers each evening. Denies any current abdominal pain however she states that she also noted that her stomach "hurting like hell" about 1.5 months ago. She has had a history of this in the past and then began using omeprazole as she was instructed to do with previous episode. Her last melena stool occurred yesterday a.m. She has not have any bowel movement output since that time. She reported some uneasy feeling in her stomach but denies any current nausea or vomiting. Also is an avid coffee drinker. Lifetime non-smoker. Consumes 3 beers each evening. Denies recreational drug use including marijuana. 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 She is with 3 living children, 1 daughter is . She has 10 grandchildren and 10 great-grandchildren. Allergies Allergy/AdvReac Type Severity Reaction Status Date / Time No Known Allergies Allergy Verified 03/22/22 15:09 Home Medications Medication Instructions Recorded Confirmed Type No Known Home Medications 03/21/22 03/21/22 History Patient History Medical History (Updated 03/21/22 @ 15:48 by Dominga Juarez PA-C) GERD (gastroesophageal reflux disease) HTN (hypertension) UGIB (upper gastrointestinal bleed) Surgical History (Updated 03/21/22 @ 15:48 by Dominga Juarez PA-C) H/O: hysterectomy Social History (Updated 03/21/22 @ 15:48 by Dominga Juarez PA-C) Smoking Status: Never smoker Hx Alcohol Use: Yes Alcohol type: beer Alcohol Intake Frequency: 4 or More x per/Week Hx Substance Use: No Preferred Language: [place]ic Communication Ability: Effective 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 Required: No Beliefs That Will Affect Care: None Current Living Situation: Alone Current Living Situation Comment: House Feels Safe at Home: Yes Assistive Devices: None Review of Systems Review of Systems: All systems reviewed & are unremarkable except as noted in Subjective Physical Exam Constitutional: WD/WN, vitals as above Respiratory: normal respiratory effort, lungs clear to auscultation Cardiovascular: Rate/Rhythm: regular rate and regular rhythm Gastrointestinal (Abdomen): Inspection/Auscultation: abdomen normal to inspection and normal bowel sounds; abdomen not distended Percussion/Palpation: + abdomen tender (mid to upper abdomen) and abdomen soft; no guarding and abdomen not rigid Neurologic: PERRL, EOMI, accommodation nl, no face palsy, no dysarthria Psychiatric: A+Ox3, euthymic affect Results & Data ([facility]) Vital Signs (Past 12 Hours) Vital Signs Temp Pulse Pulse Pulse Resp BP BP 03/22/22 12:15 36.9 C 84 16 148/77 H 03/22/22 11:45 36.6 C 87 16 138/77 03/22/22 11:28 36.8 C 85 16 125/75 03/22/22 11:09 36.9 C 96 H 16 160/87 H 03/22/22 08:41 96 H 03/22/22 08:39 36.9 C 93 H 18 150/88 H 03/22/22 07:40 37.3 C 80 18 113/62 03/22/22 06:28 37.0 C 88 18 118/64 03/22/22 05:33 37.0 C 86 18 119/76 03/22/22 05:03 37.1 C 75 18 124/62 03/22/22 04:48 37.1 C 87 16 116/65 03/22/22 04:41 82 17 133/66 03/22/22 04:25 36.8 C 87 16 113/63 Pulse Ox 03/22/22 12:15 98 03/22/22 11:45 99 03/22/22 11:28 99 03/22/22 11:09 100 03/22/22 08:41 03/22/22 08:39 99 03/22/22 07:40 100 03/22/22 06:28 100 03/22/22 05:33 100 03/22/22 05:03 97 03/22/22 04:48 98 03/22/22 04:41 99 03/22/22 04:25 97 Laboratory Results Laboratory Results - last 24 hr 03/21/22 03/21/22 03/21/22 11:53 14:42 15:33 WBC RBC Hgb Hct MCV MCH MCHC RDW Std Deviation RDW Coeff of Clara Plt Count MPV Immature Gran % (Auto) Neut % (Auto) Lymph % (Auto) Laurel % (Auto) Eos % (Auto) Baso % (Auto) Neut # (Auto) Lymph # (Auto) Laurel # (Auto) Eos # (Auto) Baso # (Auto) Immature Gran # (Auto) Polychromasia Basophilic Stippling Sodium Potassium Chloride Carbon Dioxide Anion Gap BUN Creatinine Est Cr Clr Drug Dosing Est GFR ( Amer) Est GFR (Non-Af Amer) BUN/Creatinine Ratio Glucose Calcium Magnesium Total Bilirubin AST ALT Alkaline Phosphatase Total Protein Albumin Globulin Albumin/Globulin Ratio Folate Urine Color Yellow Urine Appearance Clear Urine pH 5.5 Ur Specific Hartshorn 1.037 H Urine Protein Negative Urine Glucose (UA) Negative Urine Ketones Negative Urine Blood Negative Urine Nitrite Negative Urine Bilirubin Negative Urine Urobilinogen Negative Ur Leukocyte Esterase 2+ H Urine WBC (Auto) 5-10 H Urine RBC (Auto) 0-4 U Hyaline Cast (Auto) 1-5 U Epithel Cells (Auto) >30 H Urine Bacteria (Auto) Negative SARS-CoV-2, RNA, NAAT NEGATIVE Blood Type O Positive Blood Type Recheck Antibody Screen NEGATIVE Crossmatch See Detail 03/21/22 03/21/22 03/22/22 20:50 20:50 03:46 WBC 6.46 RBC 2.35 L Hgb 7.3 L 7.0 L Hct 22.2 L 20.9 L* MCV 88.9 MCH 29.8 MCHC 33.5 RDW Std Deviation 45.2 RDW Coeff of Clara 13.8 Plt Count 205 MPV 10.4 Immature Gran % (Auto) 0.2 Neut % (Auto) 56.6 Lymph % (Auto) 34.2 Laurel % (Auto) 6.7 Eos % (Auto) 1.7 Baso % (Auto) 0.6 Neut # (Auto) 3.66 Lymph # (Auto) 2.21 Laurel # (Auto) 0.43 Eos # (Auto) 0.11 Baso # (Auto) 0.04 Immature Gran # (Auto) 0.01 Polychromasia 1+ Basophilic Stippling 1+ Sodium Potassium Chloride Carbon Dioxide Anion Gap BUN Creatinine Est Cr Clr Drug Dosing Est GFR ( Amer) Est GFR (Non-Af Amer) BUN/Creatinine Ratio Glucose Calcium Magnesium Total Bilirubin AST ALT Alkaline Phosphatase Total Protein Albumin Globulin Albumin/Globulin Ratio Folate Urine Color Urine Appearance Urine pH Ur Specific Hart[place]orn Urine Protein Urine Glucose (UA) Urine Ketones Urine Blood Urine Nitrite Urine Bilirubin Urine Urobilinogen Ur Leukocyte Esterase Urine WBC (Auto) Urine RBC (Auto) U Hyaline Cast (Auto) U Epithel Cells (Auto) Urine Bacteria (Auto) SARS-CoV-2, RNA, NAAT Blood Type Blood Type Recheck O Positive Antibody Screen Crossmatch 03/22/22 03/22/22 03:46 03:46 WBC RBC Hgb Hct MCV MCH MCHC RDW Std Deviation RDW Coeff of Clara Plt Count MPV Immature Gran % (Auto) Neut % (Auto) Lymph % (Auto) Laurel % (Auto) Eos % (Auto) Baso % (Auto) Neut # (Auto) Lymph # (Auto) Laurel # (Auto) Eos # (Auto) Baso # (Auto) Immature Gran # (Auto) Polychromasia Basophilic Stippling Sodium 138 Potassium 3.8 Chloride 110 H Carbon Dioxide 24 Anion Gap 4 BUN 22 Creatinine 0.64 Est Cr Clr Drug Dosing 66.0 Est GFR ( Amer) 101.2 Est GFR (Non-Af Amer) 87.3 BUN/Creatinine Ratio 34.4 H Glucose 96 Calcium 7.9 L Magnesium 2.0 Total Bilirubin 0.5 AST 13 ALT 7 Alkaline Phosphatase 39 Total Protein 4.8 L D Albumin 3.2 L Globulin 1.6 L Albumin/Globulin Ratio 2.0 Folate > 22.30 Urine Color Urine Appearance Urine pH Ur Specific Hart[place]orn Urine Protein Urine Glucose (UA) Urine Ketones Urine Blood Urine Nitrite Urine Bilirubin Urine Urobilinogen Ur Leukocyte Esterase Urine WBC (Auto) Urine RBC (Auto) U Hyaline Cast (Auto) U Epithel Cells (Auto) Urine Bacteria (Auto) SARS-CoV-2, RNA, NAAT Blood Type Blood Type Recheck Antibody Screen Crossmatch Diagnostic Findings Abdomen/Pelvis CT 03/21/22 11:42 CT abd pelvis IV con only CLINICAL HISTORY: abd pain, GI bleed COMPARISON STUDY: No previous studies for comparison. CT DOSE: 306.19 mGy.cm TECHNIQUE: Standard CT of the Abdomen and Pelvis was performed with IV contrast. A dose lowering technique was utilized adhering to the principles of ALARA. Contrast Volume: Optiray 320, 94 ml. The patient did not receive oral contrast. FINDINGS: Lung base: The lung bases are clear. Abdominal cavity: There is no evidence for abdominal mass, adenopathy or ascites. Liver: There is homogeneous attenuation of the liver parenchyma. There is no evidence for enhancing mass lesion. Spleen: There is homogeneous attenuation of the splenic parenchyma. There is no enhancing mass lesion. Pancreas: There is homogeneous attenuation of the pancreatic parenchyma. There is no evidence for mass lesion or peripancreatic fluid collection. Gall Bladder: The patient is status post cholecystectomy with physiologic dilatation of common bile duct. Adrenal glands: The adrenal glands are normal in size and attenuation. There is no evidence for enhancing mass lesion. Kidneys: There is homogeneous attenuation of the renal parenchyma bilaterally. There is no evidence for renal calculus or hydronephrosis. There is no evidence for enhancing mass. There is a sharply defined simple right renal cyst. Bowel: There is no CT evidence for active GI bleeding. The bowel loops are normally placed within the abdomen and pelvis without evidence for dilatation or obstruction. There is no evidence for mass lesion. There are no inflammatory changes present. There is no evidence for free air. The appendix is not visualized. Bladder: The bladder is within normal limits with no evidence for focal mass, calculus or diverticulum. : There is no evidence for pelvic mass or adenopathy. There is no evidence for pelvic ascites. Vasculature: There is no evidence for aneurysmal dilatation of the abdominal aorta. Osseous structures: There is no acute osseous pathology. Degenerative changes are seen within the spine. IMPRESSION: 1. No acute intra-abdominal or pelvic abnormality. 2. No CT evidence for GI bleed. 3. Additional nonacute findings are delineated above. ACT 112: Negative or not required by law. Electronically signed by: Jorge Dykes M.D. 03/21/2022 1:38 PM
--- NOTE | 2022-03-22 12:47 | Hospitalist Progress Note ---
Date of Service March 22, 2022 Assessment & Plan (1) UGIB (upper gastrointestinal bleed): Plan: Suspected, given elevated BUN, hemoglobin 9.1, dark tarry stools over the past week with multiple risk factors including frequent NSAID & alcohol ingestion. With a distant history of PUD 15-20 years ago. Acute blood loss anemia. - Continue IV PPI twice daily. - NPO - Consulted GI - Awaiting EGD today. - Trend H/H every 8 hours - S/p 2 units PRBCs on 03/22 for hgb dropping to 7.0. - Counseled on need to find alternative for pain relief, as frequent NSAID use is likely contributing to GI bleed. Also encouraged to reduce caffeine & a lcohol intake. (2) GERD (gastroesophageal reflux disease): Plan: Has been intermittently taking omeprazole over the past several months, but nothing routinely. (3) Alcohol use: Plan: Reports she drinks 3-6 beers/night every night. Has never withdrawn from alcoh ol. LFTs within normal limits. - Placed on AWSS as per precautions. - Patient was counseled on the need to cut back on alcohol in order to prevent future episodes of GI bleeds. Admission and Anticipated Discharge Date Admission Date: March 21, 2022 Results & Data Results & Data ([facility]) Vital Signs (Past 12 Hours) Vital Signs Temp Pulse Pulse Pulse Resp BP BP 03/22/22 12:15 36.9 C 84 16 148/77 H 03/22/22 11:45 36.6 C 87 16 138/77 03/22/22 11:28 36.8 C 85 16 125/75 03/22/22 11:09 36.9 C 96 H 16 160/87 H 03/22/22 08:41 96 H 03/22/22 08:39 36.9 C 93 H 18 150/88 H 03/22/22 07:40 37.3 C 80 18 113/62 03/22/22 06:28 37.0 C 88 18 118/64 03/22/22 05:33 37.0 C 86 18 119/76 03/22/22 05:03 37.1 C 75 18 124/62 03/22/22 04:48 37.1 C 87 16 116/65 03/22/22 04:41 82 17 133/66 03/22/22 04:25 36.8 C 87 16 113/63 Pulse Ox 03/22/22 12:15 98 03/22/22 11:45 99 03/22/22 11:28 99 03/22/22 11:09 100 03/22/22 08:41 03/22/22 08:39 99 03/22/22 07:40 100 03/22/22 06:28 100 03/22/22 05:33 100 03/22/22 05:03 97 03/22/22 04:48 98 03/22/22 04:41 99 03/22/22 04:25 97 PG Care Time/CCT Total # of Minutes Spent Total Time Spent with Patient: Total time spent is greater than 50% in coordination of care (as documented) at patient's floor/unit and/or counseling patient: Coding Level of Care Code 29120 Subseq Hosp Care Lvl 3 Diagnoses UGIB (upper gastrointestinal bleed) K92.2 GERD (gastroesophageal reflux disease) K21.9 Alcohol use Z72.89
--- NOTE | 2022-03-22 15:25 | Anesthesiology Consultation ---
Date of Service March 22, 2022 Assessment & Plan Chart Review Chart Review: Acceptable Risk for Surgery and Patient NOT seen in Pre Admission Testing Patient has received 2 units pRBC's. Consults Requested none History Surgery Operation Date: 03/22/22 16:00 Proposed Procedures p Esophagogastroduodenoscopy Dr Patino - Joe Patino Height/Weight Height: 5 ft 1 in Weight: 65.9 kg Allergies Allergy/AdvReac Type Severity Reaction Status Date / Time No Known Allergies Allergy Verified 03/22/22 15:09 Medications Home Medications Medication Instructions Recorded Confirmed Last Taken No Known Home Medications 03/21/22 03/21/22 Unknown Active Medications Generic Name Dose Route Start Last Admin Trade Name Freq PRN Reason Stop Dose Admin Pantoprazole Sodium 40 mg/ 10 mls @ 5 mls/min 03/21/22 21:00 03/22/22 10:02 Syringe IV 04/20/22 20:59 5 mls/min BID TAMMI Administration NPO Date Last Intake of Fluids: 03/21/22 Time Last Intake of Fluids: 15:00 Date Last Intake of Solids: 03/20/22 Time Last Intake of Solids: 12:00 Past Medical History Medical History GERD (gastroesophageal reflux disease) HTN (hypertension) UGIB (upper gastrointestinal bleed) Exercise / Class Metabolic Activity II 4-5 Yardwork/Stairs/Walk up hill Past Surgical History Surgical History H/O: hysterectomy Past Anesthesia History No Hx of Anesthesia Complications and No Family Hx of Anesthesia Complications History of PONV No Hx of PONV and No Hx of Motion Sickness Social History Smoking Status: Never smoker Hx Alcohol Use: Yes Alcohol type: beer alcohol intake frequency: 3 or more drinks per day Hx Substance Use: No Physical Exam Vital Signs Last Vital Signs Temp 36.9 C 03/22/22 15:10 Pulse 90 03/22/22 15:10 Resp 18 03/22/22 15:10 BP 166/88 H 03/22/22 15:10 Pulse Ox 98 03/22/22 15:10 Testing Laboratory Results 03/22/22 03:46 03/22/22 03:46 PT 10.3 Seconds (9.0-12.0) 03/21/22 11:53 INR 1.0 (0.9-1.1) 03/21/22 11:53 Urine Color Yellow 03/21/22 14:42 Urine Appearance Clear (Clear) 03/21/22 14:42 Urine pH 5.5 (4.5-7.5) 03/21/22 14:42 Ur Specific [place] 1.037 (1.000-1.030) H 03/21/22 14:42 Urine Protein Negative (Negative) 03/21/22 14:42 Urine Glucose (UA) Negative (Negative) 03/21/22 14:42 Urine Ketones Negative (Negative) 03/21/22 14:42 Urine Nitrite Negative (Negative) 03/21/22 14:42 Ur Leukocyte Esterase 2+ (Negative) H 03/21/22 14:42 Urine WBC (Auto) 5-10 /hpf (0-5) H 03/21/22 14:42 Urine RBC (Auto) 0-4 /hpf (0-4) 03/21/22 14:42 U Hyaline Cast (Auto) 1-5 /lpf (0-5) 03/21/22 14:42 U Epithel Cells (Auto) >30 /lpf (0-5) H 03/21/22 14:42 Urine Bacteria (Auto) Negative (Negative) 03/21/22 14:42 Blood Type O Positive 03/21/22 11:53 Antibody Screen NEGATIVE 03/21/22 11:53 Electrocardiogram Date: 03/21/22 Findings: + NSR @ (93) Normal sinus rhythm Normal ECG No previous ECGs available Confirmed by Dangelo Simon ([id number]) on 03/21/2022 5:38:22 PM
[2022-03-22] MEDS ORDERED: PROPOFOL IV EMULSION 10 MG/ML 20 ML VIAL IV ONE ×2 (16:03→16:26)
[2022-03-22] MEDS ORDERED: LIDOCAINE 2% 2 ML VIAL/AMP(20MG/ML) INFIL ONE (16:03)
--- NOTE | 2022-03-22 16:38 | Anesthesiology Progress Note ---
Date of Service March 22, 2022 Anesthesia Post Procedure Vital Signs Vital Signs: Temp Pulse Pulse Pulse Resp BP BP 03/22/22 16:29 102 H 16 117/71 03/22/22 15:10 36.9 C 90 90 18 166/88 H 03/22/22 14:19 87 03/22/22 14:15 37 C 86 15 144/75 H 03/22/22 13:45 37 C 87 87 H 137/89 03/22/22 12:45 36.9 C 87 98 H 137/83 03/22/22 12:15 36.9 C 84 16 148/77 H 03/22/22 11:45 36.6 C 87 16 138/77 03/22/22 11:28 36.8 C 85 16 125/75 03/22/22 11:09 36.9 C 96 H 16 160/87 H 03/22/22 08:41 96 H 03/22/22 08:39 36.9 C 93 H 18 150/88 H 03/22/22 07:40 37.3 C 80 18 113/62 03/22/22 06:28 37.0 C 88 18 118/64 03/22/22 05:33 37.0 C 86 18 119/76 03/22/22 05:03 37.1 C 75 18 124/62 03/22/22 04:48 37.1 C 87 16 116/65 03/22/22 04:41 82 17 133/66 03/22/22 04:25 36.8 C 87 16 113/63 03/21/22 18:10 97 H 17 121/64 03/21/22 17:54 100 H 15 118/81 03/21/22 17:23 99 H 16 146/77 H Pulse Ox Pulse Ox 03/22/22 16:29 96 03/22/22 15:10 98 03/22/22 14:19 03/22/22 14:15 98 03/22/22 13:45 99 03/22/22 12:45 03/22/22 12:15 98 03/22/22 11:45 99 03/22/22 11:28 99 03/22/22 11:09 100 03/22/22 08:41 03/22/22 08:39 99 03/22/22 07:40 100 03/22/22 06:28 100 03/22/22 05:33 100 03/22/22 05:03 97 03/22/22 04:48 98 03/22/22 04:41 99 03/22/22 04:25 97 03/21/22 18:10 99 98 03/21/22 17:54 99 03/21/22 17:23 99 Transfer of Care Handoff Completed per policy Notes Mental Status: alert / awake / arousable and participated in evaluation Patient Amnestic to Procedure: Yes Nausea / Vomiting: adequately controlled Pain: adequately controlled Airway Patency, RR, SpO2: stable & adequate BP & HR: stable & adequate Hydration State: stable & adequate Anesthetic Complications: no major complications apparent and Pt Satisfied with anesthetic care
--- NOTE | 2022-03-22 16:46 | GI REPORT ---
Patient Name: Mariaelena Avitia Procedure Date: 03/22/2022 4:12 PM Date of : 1945 Admit Type: Inpatient Age: 77 Gender: Female Attending MD: Joe Patino MD Procedure: Upper GI endoscopy Providers: Joe Patino MD Referring MD: David Moralez Md Indications: Melena Medicines: Monitored Anesthesia Care Complications: No immediate complications. Estimated blood loss: None. Estimated Blood Loss: Estimated blood loss: none. Procedure: Pre-Anesthesia Assessment: - The risks and benefits of the procedure and the sedation options and risks were discussed with the patient. All questions were answered and informed consent was obtained. After obtaining informed consent, the endoscope was passed under direct vision. Throughout the procedure, the patient's blood pressure, pulse, and oxygen saturations were monitored continuously. The Endoscope was introduced through the mouth, and advanced to the second part of duodenum. The upper GI endoscopy was accomplished without difficulty. The patient tolerated the procedure well. Procedure and risks explained to patient which include but not limited to medication reaction, bleeding, perforation, aspiration , and missed lesions. Judicious gas insufflation was used and gas removal done on the way out. The lumen was always visualized when advancing the scope. Prep was good. Washes and suctioning used as needed to get good visualization of the mucosa. Retroflexion to look at the fundus and cardia of the stomach and GE junction was done. Findings: Esophagogastric landmarks were identified: the gastroesophageal junction was found at 35 cm from the incisors. A 2 cm hiatal hernia was present. 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 The maximum longitudinal extent of these mucosal changes was 5 cm in length. Two superficial esophageal ulcers with no stigmata of recent bleeding was found 30 cm from the incisors. The lesions were 10 mm in largest dimension. The stomach was normal. The examined duodenum was normal. The exam was otherwise without abnormality. Impression: - Esophagogastric landmarks identified. - 2 cm hiatal hernia. 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 - Esophageal ulcers with no stigmata of recent bleeding. - Normal stomach. - Normal examined duodenum. - The examination was otherwise normal. - No specimens collected. Recommendation: - Return patient to [facility] for ongoing care. - Recommend PPI po bid and repeat EGD 6-8 weeks to document healing of ulcer and do biopsies of Barrretts esophagus. Ulcers are large enough to be cause of recent bleeding. Joe Patino M.D. Joe Patino MD 03/22/2022 4:46:07 PM This report has been signed electronically. Note Initiated On: 03/22/2022 4:12 PM Number of Addenda: 0 I attest to the content of the Intraoperative Record and orders documented therein, exceptions below {[id number]}
[2022-03-22 18:56] LABS: Hematocrit (blood only) 33.8 % (37-47); Hemoglobin 11.2 g/dL (12.0-16.0)
[2022-03-23 06:13] LABS: Hematocrit (blood only) 30.9 % (37-47); Hemoglobin 10.4 g/dL (12.0-16.0); Mean Corpuscular Hemoglobin 29.9 pg (25-34); Mean Corpuscular Hgb Conc 33.7 g/dL (32-36); Mean Corpuscular Volume 88.8 fL (80-100); Mean Platelet Volume 10.6 fL (7.4-10.4); Platelet Count 194 K/uL (130-400); RDW Coefficient of Variation 13.9 % (11.5-14.5); RDW Standard Deviation 44.6 fL (36.4-46.3); Red Blood Count 3.48 M/uL (4.2-5.4); White Blood Count 5.86 K/uL (4.8-10.8)
[2022-03-23 06:39] LABS: BUN Creatinine Ratio 25.4 (10-20); Calcium 8.2 mg/dl (8.5-10.1); Est GFR (African American) 99.7 ml/min; Potassium 4.3 mmol/L (3.5-5.1)
[2022-03-23] MEDS: PANTOprazole 40 MG in SYRINGE 0 ML IV SCH (08:06)
--- NOTE | 2022-03-23 08:12 | Gastroenterology Progress Note ---
Date of Service March 23, 2022 Assessment & Plan (1) UGIB (upper gastrointestinal bleed): Plan: Upper GI bleed: Patient reports a 1-1/2 to 2-week history of melena stools with abdominal pain that began approximately 1-1/2 weeks ago. She has risk factors for upper GI bleeding including coffee and routine NSAID use including Motrin and aspirin multiple times daily. She also drinks several beers per evening. EGD demonstrated esophageal changes consistent with Armijo's as well as to esophageal ulcers. Recommend continuation of PPI p.o. twice daily and patient will require repeat EGD in 6 to 8 weeks to document healing of the ulcers and biopsy the Armijo's esophagus segment. I have arranged outpatient follow-up with our office and will schedule EGD at that time. Case reviewed with Dr. Patino. Please refer to supervising physician addendum for further recommendations. I have spent 20 minutes of discrete time performing the activities of this visit which include but are not limited to review of the medical record, obtaining a history, physical exam, and entering information in the electronic record. Admission and Anticipated Discharge Date Admission Date: March 21, 2022 Supervising Physician Co-Signing Physician Notes Pt left hospital prior to rounds today so not seen by me. Subjective Patient is awake alert and oriented lying in bed and position of comfort this morning. Reports overall she is feeling quite well. She is hopeful for discharge today. Denies any abdominal pain, nausea, vomiting, bowel movement since admission. She did receive a regular tray last night for dinner and again this morning. States she tolerated regular diet without difficulty. Review of Systems Review of Systems: All systems reviewed & are unremarkable except as noted in Subjective Physical Exam Gastrointestinal (Abdomen): normal bowel sounds, soft, nontender, no hepatosplenomegaly Results & Data ([facility]) Vital Signs (Past 12 Hours) Vital Signs Temp Pulse Pulse Resp BP Pulse Ox 03/23/22 03:55 36.6 C 72 18 104/64 98 03/22/22 23:54 36.5 C 72 18 106/62 96 03/22/22 22:17 73 Laboratory Results Laboratory Results - last 24 hr 03/21/22 03/22/22 03/23/22 11:53 18:06 05:40 WBC 5.86 RBC 3.48 L Hgb 11.2 L D 10.4 L Hct 33.8 L 30.9 L MCV 88.8 MCH 29.9 MCHC 33.7 RDW Std Deviation 44.6 RDW Coeff of Clara 13.9 Plt Count 194 MPV 10.6 H Sodium Potassium Chloride Carbon Dioxide Anion Gap BUN Creatinine Est Cr Clr Drug Dosing Est GFR ( Amer) Est GFR (Non-Af Amer) BUN/Creatinine Ratio Glucose Calcium Magnesium Blood Type O Positive Antibody Screen NEGATIVE Crossmatch See Detail 03/23/22 05:40 WBC RBC Hgb Hct MCV MCH MCHC RDW Std Deviation RDW Coeff of Clara Plt Count MPV Sodium 139 Potassium 4.3 Chloride 109 H Carbon Dioxide 27 Anion Gap 3 BUN 17 Creatinine 0.67 Est Cr Clr Drug Dosing 63.0 Est GFR ( Amer) 99.7 Est GFR (Non-Af Amer) 86.0 BUN/Creatinine Ratio 25.4 H Glucose 96 Calcium 8.2 L Magnesium 2.0 Blood Type Antibody Screen Crossmatch Diagnostic Findings 03/22/2022: EGD notes reviewed performed due to history of melena which demonstrated gastroesophageal junction found 35 cm to the incisors. There was a 2 cm hiatal hernia present. There were esophageal mucosal changes consistent with long segment Armijo's esophagus present in the lower third of the esophagus with maximal longitudinal extent of these mucosal changes 5 cm. 2 superficial esophageal ulcers with no stigmata of recent bleeding found 30 cm from the incisors. The lesions were 10 mm in largest dimension. Stomach was normal, examined duodenum was normal. Exam was otherwise without abnormality. Recommendation is PPI p.o. twice daily and repeat EGD 6 to 8 weeks to document healing of ulcer and biopsy Armijo's esophagus.
--- NOTE | 2022-03-23 17:57 | Discharge Summary ---
Date of Service March 23, 2022 Admission HPI Per Admitting Provider Mariaelena Avitia is a 77 y/o female with PMH of arthritis, GERD, and distant history of PUD who presents today for evaluation of dark stools over the past week. She reports she has been noting that her stools have been black over the past week, almost as if they are tarry. She has also developed shortness of breath, dizziness, and palpitations with activity beginning yesterday. She does she drinks coffee daily and has been taking either "3 pills" of Advil or aspirin regularly for the 2-3 weeks for treatment of her arthritis. 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 She does note a distant history of peptic ulcer disease ~15-20 years ago, believes she has had this EGD before but does not recall results. She does not recall ever being told that she is anemic by her PCP, who she does see regularly. In ED, she is mildly hypertensive with HR 90, otherwise vital signs within normal limits and stable. Labs largely unremarkable, significant for hemoglobin 9.1 (no previous labs for reference), BUN 40. No leukocytosis, electrolytes within normal limits. HS Trop 3.8. CT A/P showed no CT evidence for GI bleed or any other acute abnormalities. CXR unremarkable. Patient received IV fluids as well as IV pantoprazole in ED. Hospitalist service was consulted for further evaluation and admission. Principal Diagnosis Esophageal ulcer with bleeding Discharge Exam Constitutional WD/WN, vitals as above Eyes EOM intact bilaterally; no conjunctival abnormality ENMT external ear and nose normal, oropharynx normal Neck trachea midline, no thyromegaly normal visual inspection Respiratory normal respiratory effort, lungs clear to auscultation no respiratory distress Cardiovascular RRR, no murmur, no edema Gastrointestinal (Abdomen) Inspection/Auscultation: abdomen normal to inspection; abdomen not distended Musculoskeletal no cyanosis or clubbing, extremities motor strength 5/5 Skin no rashes, warm and dry Neurologic moves all extremities and awake Psychiatric Orientation: alert, oriented to person and cooperative Discharge Data Allergies Allergy/AdvReac Type Severity Reaction Status Date / Time No Known Allergies Allergy Verified 03/22/22 15:09 Consultations 03/21/22 15:17 ED Decision to Admit Stat 03/21/22 17:48 Consult Gastroenterology Routine Procedures Performed Operation Date: 03/22/22 16:00 Actual Procedures p Esophagogastroduodenoscopy - Joe Patino Ordered Studies 03/21/22 11:42 CT abd pelvis IV con only Stat Hospital Course (1) UGIB (upper gastrointestinal bleed): Suspected, given elevated BUN, hemoglobin 9.1, dark tarry stools over the past week with multiple risk factors including frequent NSAID & alcohol ingestion. With a distant history of PUD 15-20 years ago. Acute blood loss anemia. - EGD on 03/22 showed two esophageal ulcers which were thought to be the culprit lesions. - Continue PPI PO twice daily until cleared by GI to resume daily - S/p 2 units PRBCs on 03/22 for hgb dropping to 7.0 -> Hgb stable on discharge. - Counseled on need to find alternative for pain relief, as frequent NSAID use is likely contributing to GI bleed. Also encouraged to reduce caffeine & alcohol intake. (2) GERD (gastroesophageal reflux disease): Has been intermittently taking omeprazole over the past several months, but nothing routinely. (3) Alcohol use: Reports she drinks 3-6 beers/night every night. Has never withdrawn from alcohol. LFTs within normal limits. - Placed on AWSS as per precautions. - Patient was counseled on the need to cut back on alcohol in order to prevent future episodes of GI bleeds. Total Time Total Time Spent Total Time Spent (In Minutes): 34 Discharge Plan Discharge Items Patient Disposition: Home - Self-Care Reason For Visit: UGI BLEED Discharge Diagnosis: Bleeding from two esophageal ulcers Activity: Resume your previous activity Non-emergency contact: Primary Care Provider and Speech Professor Call non-emergency contact if: your symptoms worsen Follow-up/Referrals: Chris Bazzi MD [Primary Care Provider] - Clovis rCawford MD [Physician] - 04/07/22 11:00 am Diet: Regular Addtl Attending Provider Instructions: Ms. Avitia, Nigel were admitted to the hospital with some dark stools that were from bleeding from two esophagus ulcers. The ulcers were likely from NSAID medication (Aleve, ibuprofen, naproxen) along with some alcohol usage. Please avoid these medications as much as possible and refrain from drinking for about 1 week. At that time, please limit your alcohol consumption to 1 drink a day or 7 drinks/week. Please limit your coffee, acidic, and spicy food intake for 1 week, then gradually resume. You can safely drink 1-2 cups of coffee per day. Please take the acid-blocking medication twice per day until you see the GI team in the office. Please return to the hospital if you have more dark, tarry stools, lightheadedness, dizziness, throw up blood, or have other concerning symptoms. Pending Studies at Discharge: No Stand-Alone Forms: [facility], Smoking Cessation Medications and DC Order Prescriptions: New pantoprazole 40 mg Tablet,Delayed Release (Dr/Ec) 40 mg PO BID Qty: 60 RF: 0 Discharge Orders: Discharge Order (Routine); Ordered 03/23/22 Ordered By: David Moralez Admission Data Admit Date/Time: 03/21/22 14:54 Attending Provider: David Moralez Admit Provider: Ethan Polanco Primary Care Provider: Chris Bazzi Other Providers: David Moralez ; Joe Patino Other Interventions: Discharge Summary Assessment (RN) Last Done: 03/23/22 12:05 Coding Level of Care Code D/C DAY MANAGEMENT >30 MINS Diagnoses UGIB (upper gastrointestinal bleed) K92.2 GERD (gastroesophageal reflux disease) K21.9 Esophagitis presence: esophagitis presence not specified Alcohol use Z72.89
== END 2022-03-23 13:28 | disposition home or self-care (01) | DRG 381 ==
LOC: ED 10:59 → SUATTDRO 14:54 → EDINP 14:54 → 2N 17:50
DX: K21.9 Gastro-esophageal reflux disease without esophagitis; K44.9 Diaphragmatic hernia without obstruction or gangrene; Z87.11 Personal history of peptic ulcer disease; K22.11 Ulcer of esophagus with bleeding; Z90.710 Acquired absence of both cervix and uterus; I10 Essential (primary) hypertension; D62 Acute posthemorrhagic anemia